=== PATIENT | female | born 1950 | race Caucasian/White ===

== ENCOUNTER 2021-06-13 11:00 | Outpatient (REF) | payer MEDICARE, SELFPAY ==
--- NOTE | ~2021-06-13 | MM_ITS ---
EXAMINATION: MM SCREENING DIGITAL BREAST TOMOSYNTHESIS, BILATERAL CLINICAL INFORMATION: Screening. Asymptomatic. The lifetime risk of breast cancer based on the Tyrer-Cuzick Model is 4%. COMPARISON: Mammography: 10/02/2019, 05/27/2018, 05/17/2017 TECHNIQUE: Digital breast tomosynthesis is performed in both the craniocaudal and mediolateral oblique views along with computer-aided detection (CAD). Synthesized 2D images are generated from the tomosynthesis. FINDINGS: There are scattered areas of fibroglandular density (ACR BI-RADS breast composition Category b). There are no significant masses, abnormal calcifications, or other abnormalities. Parenchymal pattern is similar to prior studies. No significant changes. MM/MM tomosynthesis screening BI IMPRESSION: No mammographic evidence of malignancy. ASSESSMENT: BI-RADS 1: Negative RECOMMENDATION: Routine annual mammography screening. This patient's information was entered into a reminder system with a target due date for their next mammogram.
== END 2021-06-13 11:01 | disposition home or self-care (01) ==
LOC: HO.MAMMO 11:00
PROVIDERS: PCP Internal Medicine; Visit Provider Internal Medicine
DX: Z12.31 Encounter for screening mammogram for malignant neoplasm of breast (principal)
CPT/HCPCS: 77063; 77067

== ENCOUNTER 2021-06-28 07:59 | Outpatient (REF) | payer MEDICARE, SELFPAY ==
--- NOTE | ~2021-06-28 | MM_ITS ---
EXAMINATION: BONE DENSITOMETRY CLINICAL INDICATION: Postmenopausal estrogen deficiency. COMPARISON: Previous BD dated 08/01/2017 and baseline BD dated 05/11/2011. TECHNIQUE: Using a [employer] DXA System (software version: 13.1) manufactured by [employer], dual-energy x-ray absorptiometry was performed of the lumbar spine and left hip. The images are of good technical quality. Summary results are attached. FINDINGS: AP SPINE L1-L4: Current: BMD 1.106 g/cm2, Z-score 1.0, T-score -0.6, normal, 4.0% decrease from previous, 7.7% decrease from baseline (<5% change is not significant). Prior: BMD 1.152 g/cm2. Baseline: BMD 1.198 g/cm2. LEFT FEMUR, NECK: Current: BMD 0.839 g/cm2, Z-score 0.2, T-score -1.4, osteopenia. Prior: BMD 0.870 g/cm2. Baseline: BMD 0.963 g/cm2. LEFT FEMUR, TOTAL: Current: BMD 0.786 g/cm2, Z-score -0.4, T-score -1.8, osteopenia, 8.6% decrease from previous, 16.3% decrease from baseline (<5% change is not significant). Prior: BMD 0.860 g/cm2. Baseline: BMD 0.939 g/cm2. IDENTIFIED RISK FACTORS: Menopause, height loss, history of fracture (adult), hysterectomy, bilateral oophorectomy. HISTORY OF FRACTURE: Elbow. MEDICATIONS: Vitamin D. MM/XR DEXA axial skeleton IMPRESSION: 1. DIAGNOSIS: Osteopenia based on the lowest T-score value of -1.8 in the total femur applying World Health Organization criteria. 2. 10-YEAR FRACTURE RISK PREDICTION, FRAX: Major osteoporotic fracture (clinical spine, forearm, hip or shoulder) 15.7%. Hip fracture 2.0%. 3. Treatment Recommendations: NOF guidelines recommend consideration for treatment in postmenopausal women and men age 50 and older presenting with the following: -A hip or vertebral (clinical or morphometric) fracture. -T-score less than or equal to -2.5 at the femoral neck or spine after appropriate evaluation to exclude secondary causes. -Low bone mass at the hip or spine and a 10-year fracture probability by FRAX of greater than or equal to 3% for hip fracture or greater than or equal to 20% for major osteoporotic fracture based on the [place] adapted WHO algorithm. 4. Other Recommendations: All treatment decisions require clinical judgment and consideration of individual patient factors, including patient preferences, comorbidities, previous drug use, risk factors not captured in the FRAX model (e.g. frailty, falls, vitamin D deficiency, increased bone turnover, interval significant decline in bone density) and possible under or overestimation of fracture risk by FRAX. Additional medical evaluation for secondary cause of low bone mineral density may be appropriate. FUTURE SCAN RECOMMENDATION: People with diagnosed cases of osteoporosis or at high risk for fracture should have regular bone mineral density tests. For patients eligible for Medicare, routine testing is allowed once every 2 years. The testing frequency can be increased to one year for patients who have rapidly progressing disease, those who are receiving or discontinuing medical therapy to restore bone mass, or have additional risk factors.
== END 2021-06-28 08:00 | disposition home or self-care (01) ==
LOC: HO.MAMMO 07:59
PROVIDERS: Visit Provider Internal Medicine
DX: Z13.820 Encounter for screening for osteoporosis (principal); M85.80 Other specified disorders of bone density and structure, unspecified site; Z78.0 Asymptomatic menopausal state; Z87.81 Personal history of (healed) traumatic fracture; Z79.899 Other long term (current) drug therapy; Z98.890 Other specified postprocedural states
CPT/HCPCS: 77080

== ENCOUNTER 2022-06-19 07:38 | Outpatient (REF) | payer MEDICARE, SELFPAY ==
--- NOTE | ~2022-06-19 | MM_ITS ---
EXAMINATION: MM SCREENING DIGITAL BREAST TOMOSYNTHESIS, BILATERAL CLINICAL INFORMATION: Screening. Asymptomatic. The lifetime risk of breast cancer based on the Tyrer-Cuzick Model is 3.4%. COMPARISON: Mammography: 06/13/2021 and studies dating back to 04/20/2010 TECHNIQUE: Digital breast tomosynthesis is performed in both the craniocaudal and mediolateral oblique views along with computer-aided detection (CAD). Synthesized 2D images are generated from the tomosynthesis. FINDINGS: There are scattered areas of fibroglandular density (ACR BI-RADS breast composition Category b). There is a stable parenchymal pattern of the left breast. Within the superior aspect of the right breast on mediolateral oblique projection approximately 8 cm from the nipple, there is a 4 x 3 mm circumscribed density which I cannot appreciate on craniocaudal view. By tomosynthesis, this should lie in the medial aspect of the breast. There is question of it containing fat but I cannot be sure of this. This likely represents a new intramammary lymph node however, spot compression view and 90 degree mediolateral view is recommended. MM/MM tomosynthesis screening BI IMPRESSION: New right breast density superiorly for further evaluation as described. ASSESSMENT: BI-RADS 0: Incomplete - Need Additional Imaging Evaluation RECOMMENDATION: 1. Additional views of the right breast 2. Targeted ultrasound if warranted after review of the additional views. 3. Radiology department staff will contact the patient for additional imaging.
== END 2022-06-19 07:39 | disposition home or self-care (01) ==
LOC: HO.MAMMO 07:38
PROVIDERS: PCP Internal Medicine; Visit Provider Internal Medicine
DX: Z12.31 Encounter for screening mammogram for malignant neoplasm of breast (principal)
CPT/HCPCS: 77063; 77067

== ENCOUNTER 2022-07-06 14:30 | Outpatient (REF) | payer MEDICARE, SELFPAY ==
--- NOTE | ~2022-07-06 | MM_ITS ---
EXAMINATION: MM DIAGNOSTIC DIGITAL BREAST TOMOSYNTHESIS, RIGHT CLINICAL INFORMATION: Recall from screening for small circumscribed nodule close to skin upper right breast. COMPARISON: Mammography: 02/17/2022, 02/11/2021, 10/02/2019 TECHNIQUE: Digital breast tomosynthesis is performed. 2D images are generated from the tomosynthesis. The following views are obtained: ML and MLO views with skin marker. FINDINGS: There are scattered areas of fibroglandular density (ACR BI-RADS breast composition Category b). There is a small mole which corresponds to the finding for recall, marked with dermal marker. Results are discussed with the patient at time of visit. Patient notes chronic dermal lesion in this area. MM/MM tomosynthesis added views R IMPRESSION: Small dermal lesion corresponding to finding for recall. ASSESSMENT: BI-RADS 2: Benign RECOMMENDATION: Routine annual mammography screening. This patient's information was entered into a reminder system with a target due date for their next mammogram.
== END 2022-07-06 14:31 | disposition home or self-care (01) ==
LOC: HO.MAMMO 14:30
PROVIDERS: PCP Internal Medicine; Visit Provider Internal Medicine
DX: R92.2 Inconclusive mammogram (principal)
CPT/HCPCS: 77061; 77065

== ENCOUNTER 2023-02-04 17:34 | Emergency (ER) | payer MEDICARE, SELFPAY ==
--- NOTE | 2023-02-04 17:37 | ED_ITS ---
HPI - General Adult General Chief complaint: Animal Bite <JAM Wasserman - Last Filed: 02/04/23 17:42> Stated complaint: dog bite on finger <JAM Wasserman - Last Filed: 02/04/23 17:42> Time Seen by Provider: 02/04/23 20:58 <JAM Wasserman - Last Filed: 02/04/23 17:42> Source: patient <Manjit Fajardo MD - Last Filed: 02/04/23 21:46> Mode of arrival: ambulatory <Manjit Fajardo MD - Last Filed: 02/04/23 21:46> Limitations: no limitations <Manjit Fajardo MD - Last Filed: 02/04/23 21:46> History of Present Illness HPI narrative: 72-year-old female presents with dog bite to the right middle finger. Was rooming dog. Vaccinations are up-to-date. Patient was playing with her dog the dog got excited neck but the finger. Pain is mild at nature. Worse with palpation. There is a significant amount of bleeding at the time. That has since stopped. Tetanus is not up-to-date. Dog does not have a history of biting. <Manjit Fajardo MD - Last Filed: 02/04/23 21:46> Related Data Home medications: Previous Rx's Medication Instructions Recorded amoxicillin 875 mg-potassium 1 tab PO BID #10 tabs 02/04/23 clavulanate 125 mg tablet <JAM Wasserman - Last Filed: 02/04/23 17:42> Allergies/adverse reactions: Allergies Allergy/AdvReac Type Severity Reaction Status Date / Time No Known Allergies Allergy Unverified 07/07/20 15:40 <JAM Wasserman - Last Filed: 02/04/23 17:42> [facility] Social History Social History: Social History Advance Directives: No Advance Directives Information Provided: No <JAM Wasserman - Last Filed: 02/04/23 17:42> Physical Exam ED Vital Signs: Vital Signs - 24 hr 02/04/23 17:38 02/04/23 20:35 Temperature 98.1 F Pulse Rate 87 Respiratory Rate 18 Blood Pressure 220/120 H 155/85 H Pulse Oximetry 100 Oxygen Delivery Method Room Air BMI result Body Mass Index 26.2 <JAM Wasserman - Last Filed: 02/04/23 17:42> Vital Signs - 24 hr 02/04/23 17:38 02/04/23 20:35 Temperature 98.1 F Pulse Rate 87 Respiratory Rate 18 Blood Pressure 220/120 H 155/85 H Pulse Oximetry 100 Oxygen Delivery Method Room Air BMI result Body Mass Index 26.2 <Manjit Fajardo MD - Last Filed: 02/04/23 21:46> GEN: Well developed, no acute distress, alert, oriented HEENT: Normocephalic, atraumatic, normal external ears, nose appears normal Eyes: Normal to appearance Neck: Supple, no lymphadenopathy Respiratory: Talks in complete sentences, no respiratory distress Extremities: No clubbing cyanosis or edema, neurovascularly intact on the right middle finger, able to flex and extend against resistance Neurologic: No focal neurologic deficits, cranial nerves 2-12 intact, gait normal Skin: No rash , flap laceration to the left full lower aspect of distal phalanx middle finger on the right <Manjit Fajardo MD - Last Filed: 02/04/23 21:46> Course Course Course Narrative: RME - 72yo patient presenting after a dog bite earlier today. Patient stated she was playing fetch with her Indonesian hernandez today when he caught her middle finger. Patient stated the dog is up to date on its shots. Patient is unsure of her last tetanus vaccine. BP in triage 220/120 Plan: Tdap, lidocaine <JAM Wasserman - Last Filed: 02/04/23 17:42> Reevaluation(s) Reevaluation #1: Laceration is repaired wound care was discussed with the patient. She received a dose of Augmentin in a tetanus vaccine today. <Manjit Fajardo MD - Last Filed: 02/04/23 21:46> Time: 21:43 <Manjit Fajardo MD - Last Filed: 02/04/23 21:46> Medications Administered Discontinued Medications Generic Name Dose Route Start Last Admin Trade Name Freq PRN Reason Stop Dose Admin Diphtheria/Tetanus/Acell Pertussis 0.5 ml 02/04/23 17:39 02/04/23 20:35 Diphth,Pertus(Acell),Tet Adult 0.5 Ml Syringe IM 02/04/23 17:40 0.5 ml .ONCE ONE Administration <JAM Wasserman - Last Filed: 02/04/23 17:42> Medications Administered Discontinued Medications Generic Name Dose Route Start Last Admin Trade Name Claudette PRN Reason Stop Dose Admin Diphtheria/Tetanus/Acell Pertussis 0.5 ml 02/04/23 17:39 02/04/23 20:35 Diphth,Pertus(Acell),Tet Adult 0.5 Ml Syringe IM 02/04/23 17:40 0.5 ml .ONCE ONE Administration <Manjit Fajardo MD - Last Filed: 02/04/23 21:46> Procedures Laceration Laceration 1: Site: hand <Manjit Fajardo MD - Last Filed: 02/04/23 21:46> Side (If applicable): right <Manjit Fajardo MD - Last Filed: 02/04/23 21:46> Size (cm): 3 <Manjit Fajardo MD - Last Filed: 02/04/23 21:46> Description: flap <Manjit Fajardo MD - Last Filed: 02/04/23 21:46> Depth: simple, single layer <Manjit Fajardo MD - Last Filed: 02/04/23 21:46> Local Anesthetic: lidocaine 1% <Manjit Fajardo MD - Last Filed: 02/04/23 21:46> Amount of anesthesia used (mL): 4 <Manjit Fajardo MD - Last Filed: 02/04/23 21:46> Pre-repair: wound explored, irrigated extensively and deep structures intact <Manjit Fajardo MD - Last Filed: 02/04/23 21:46> Skin layer closed with: vicryl <Manjit Fajardo MD - Last Filed: 02/04/23 21:46> Size (cm): 5-0 <Manjit Fajardo MD - Last Filed: 02/04/23 21:46> Number of sutures: 5 <Manjit Fajardo MD - Last Filed: 02/04/23 21:46> Technique: simple, interrupted <Manjit Fajardo MD - Last Filed: 02/04/23 21:46> Medical Decision Making Medical Decision Making MDM Narrative: 72-year-old female presents with dog bite to the right middle finger. Laceration was repaired as described above. Wound care was discussed with the patient. There is no evidence of tendon damage. Patient was able to flex and extend against resistance. Patient was neurovascularly intact. Patient was counseled regarding watching for signs or symptoms of infection which include but are not limited to redness, swelling, pain purulent drainage. Patient has received tetanus vaccination and Augmentin. She will go on Augmentin prophylactically. <Manjit Fajardo MD - Last Filed: 02/04/23 21:46> Differential Diagnosis Differential Diagnoses: The differential diagnosis associated with the presentation includes (Laceration, skin tear, abrasion) <Manjit Fajardo MD - Last Filed: 02/04/23 21:46> Prescription Management I considered prescription management with: Pain Medication and Antibiotic <Manjit Fajardo MD - Last Filed: 02/04/23 21:46> Discharge Plan Discharge Clinical Impression: Dog bite, Finger laceration <JAM Wasserman - Last Filed: 02/04/23 17:42> Patient Disposition: Home, Self-Care <JAM Wasserman - Last Filed: 02/04/23 17:42> Instructions: Animal Bite (ED), Finger Laceration (ED) <JAM Wasserman - Last Filed: 02/04/23 17:42> Prescriptions: New amoxicillin-pot clavulanate 875-125 mg tablet 1 tab PO BID Qty: 10 0RF <JAM Wasserman - Last Filed: 02/04/23 17:42> Referrals: Fernando Morel MD [Primary Care Provider] - 1 week (Wound check possible suture removal, sutures are absorbable) <JAM Wasserman - Last Filed: 02/04/23 17:42>
[2023-02-04 17:38] VITALS: BP 220/120; PULSE 87; RESP 18; TEMP 36.7; O2SAT 100; BMI 26.2
--- NOTE | 2023-02-04 19:53 | PC.NURSE ---
pt right middle finger placed in iodine, and NS, bleeding controlled at this time, pt has jagged laceration to middle finger.
[2023-02-04 20:35] VITALS: BP 155/85
[2023-02-04] MEDS: Diphth,Pertus(ACell),Tet Adult 0.5 ML SYRINGE IM (20:35)
--- NOTE | 2023-02-04 20:37 | PC.NURSE ---
Tdap Updated, in right deltoid
[2023-02-04] MEDS: Amoxicillin/Potassium Clav 875 MG TABLET PO (21:40)
[2023-02-04] MEDS: Lidocaine HCl 1 % 20 ML VIAL INFILTRATI (21:42)
--- NOTE | 2023-02-04 21:53 | PC.NURSE ---
suture site cleansed with NS patted dry, followed by nonstick dressing, kerlix and tape, pt alert orietned, NAD on discharge
== END 2023-02-04 21:53 | disposition home or self-care (01) ==
PROVIDERS: Emergency Provider Emergency Medicine; PCP Internal Medicine
DX: S61.252A Open bite of right middle finger without damage to nail, initial encounter (principal); W54.0XXA Bitten by dog, initial encounter; Y93.9 Activity, unspecified; Y92.017 Garden or yard in single-family (private) house as the place of occurrence of the external cause; Y99.9 Unspecified external cause status
CPT/HCPCS: 90471; 90715; 99283; 99284

== ENCOUNTER 2023-06-25 07:26 | Outpatient (REF) | payer MEDICARE, SELFPAY ==
--- NOTE | ~2023-06-25 | MM_ITS ---
EXAMINATION: MM SCREENING DIGITAL BREAST TOMOSYNTHESIS, BILATERAL CLINICAL INFORMATION: Screening. Asymptomatic. COMPARISON: Mammography: 07/06/2022, 06/19/2022, 06/13/2021, 10/02/2019, and dating back to 2017. TECHNIQUE: Digital breast tomosynthesis is performed in both the craniocaudal and mediolateral oblique views along with computer-aided detection (CAD). Synthesized 2D images are generated from the tomosynthesis. FINDINGS: There are scattered areas of fibroglandular density (ACR BI-RADS breast composition Category b). There are no suspicious masses, suspicious grouped calcifications, or areas of architectural distortion. The parenchymal pattern is stable from prior exams. There are dermal lesions in the upper and inferomedial right breast. These are benign. Benign lymph nodes in the far upper outer bilateral breasts. MM/MM tomosynthesis screening BI IMPRESSION: No mammographic evidence of malignancy. Stable benign findings. ASSESSMENT: BI-RADS BI-RADS 2 - Benign Findings RECOMMENDATION: Routine annual mammography screening. 1 year F/U This examination should not preclude the clinical evaluation of a suspicious palpable abnormality. This patient's information was entered into a reminder system with a target due date for their next mammogram.
== END 2023-06-25 07:27 | disposition home or self-care (01) ==
LOC: HO.MAMMO 07:26
PROVIDERS: PCP Internal Medicine; Visit Provider Internal Medicine
DX: Z12.31 Encounter for screening mammogram for malignant neoplasm of breast (principal)
CPT/HCPCS: 77063; 77067

== ENCOUNTER → 2023-06-25 07:30 | Outpatient (BNV) | payer MEDICARE, SELFPAY | PROVIDERS: PCP Internal Medicine; Visit Provider Radiology Diagnostic Radiology | DX: Z12.31 Encounter for screening mammogram for malignant neoplasm of breast (principal) | CPT/HCPCS: 77063; 77067 ==

== ENCOUNTER 2024-04-04 15:47 | Emergency (ER) | payer MEDICARE, SELFPAY ==
[2024-04-04 15:55] VITALS: BP 154/80; PULSE 67; RESP 16; TEMP 36; O2SAT 98; BMI 25.0
--- NOTE | 2024-04-04 15:58 | ED.ANIMALBIT ---
HPI - Animal Bite General Chief Complaint: Animal Bite Stated Complaint: rt hand laceration Time Seen by Provider: 04/04/24 15:57 Source: patient Mode of arrival: ambulatory Limitations: no limitations History of Present Illness ED Provider: Natasha Ann PA-C HPI narrative: 73 yo gwen presents to the ER for evaluation of a dog bite to her right hand. She was playing with her dog when he accidentally bite her hand. He punctured skin at the base of the 1st finger and there was a superficial on the palm and thumb with minimal bleeding. Patient applied pressure to the puncture would with cessation of bleeding. She is UTD on her Tdap and her dog is vaccinated as well. She is able to fully range all of her digits and make a fist. No significant pain, she reports some mild discomfort, 3/10. complaint: animal bite Onset (ago): minute(s) Animal: dog Description of animal: household pet Mechanism: bite Location - Extremities: right: hand Pain description: dull Severity scale (1-10): 3 Context: playing with animal Associated symptoms: none Treatments prior to arrival: wound dressing(s) and irrigation Related Data Patient tetanus UTD: Yes Previous Rx's ?Medication ?Instructions ?Recorded amoxicillin 875 mg-potassium 1 tab PO BID #10 tabs 02/04/23 clavulanate 125 mg tablet amoxicillin 875 mg-potassium 1 tab PO BID #14 tabs 04/04/24 clavulanate 125 mg tablet Allergies Allergy/AdvReac Type Severity Reaction Status Date / Time No Known Allergies Allergy Verified 04/04/24 15:57 Review of Systems Review of Systems: Yes all other systems are reviewed and are negative [facility] Social History Social History Advance Directives: No Advance Directives Information Provided: No Physical Exam ED Vital Signs: Vital Signs - 24 hr 04/04/24 15:55 04/04/24 16:24 Temperature 96.8 F 96.8 F Pulse Rate 67 67 Respiratory Rate 16 16 Blood Pressure 154/80 H 154/80 H Pulse Oximetry 98 98 Oxygen Delivery Method Room Air Room Air BMI result Body Mass Index 25.0 Appearance: Alert. Oriented X3. No acute distress. HEENT: normal inspection CVS: Normal heart rate and rhythm. Pulses normal. Respiratory: No respiratory distress. Skin: Skin warm and dry. Normal skin color. Normal skin turgor. No rashes. Extremities: Right hand with a X shaped superficial laceration, approximately 1 cm at the base of the 1st digit on the dorsal aspect of the hand, no active bleeding. No visible tendons. There is also a superficial flap on the palmar surface of the thumb and a superficial scratch on the dorsal aspect of the thumb, approximately 0.5 cm. Patient has full range of motion of all digits. Equal clinical reimbursement specialist strength bilaterally. Neurovascularly intact with no sensory loss, cap refill less than 3 seconds in all digits. Neuro: Oriented X 3. No motor deficit. No sensory deficit. Medical Decision Making Medical Decision Making MDM Narrative: 73-year-old female presents to the ER for evaluation of a dog bite on her right hand, sustained her dog just prior to arrival. Dog and patient are up-to-date on their vaccinations. Wounds are small, superficial and do not require suture repair today. Low suspicion for open fracture with no point tenderness on examination. Will hold off on x-ray today. Wounds were cleansed and copiously irrigated, soaked in combination of saline, hydrogen peroxide and Betadine. They were irrigated and cleaned with soap and water. Steri-Strips were applied to the irregular, cross sheet laceration to ensure closure and adequate healing. Dry sterile dressing was applied. Wound care discussed with the patient. Stable for discharge home with oral Augmentin. Patient agrees with plan all questions were answered. Return precautions and signs of infection were discussed. Differential Diagnosis Differential Diagnoses: The differential diagnosis associated with the presentation includes Superficial laceration, deep laceration, tendon injury, open fracture Independent Historian Clinical information obtained from an independent historian. History obtained from or confirmed by: Spouse Tests considered The following testing was considered but not selected: X-ray of the hand was considered however low suspicion for fracture Prescription Management I considered prescription management with: Pain Medication and Antibiotic Procedures Laceration Laceration 1: Site: hand Side (If applicable): right Size (cm): 1 Description: irregular Depth: simple, single layer Pre-repair: irrigated extensively Skin layer closed with: other (steri strips) Critical Care Time Critical Care Time Critical Care Time: No Discharge Plan Discharge Clinical Impression: Dog bite Patient Disposition: Home, Self-Care Instructions: Animal Bite (ED) Additional Instructions: Do not get wet for the next 24-48 hours, after that you can gently wash with soap and water and pat dry. The Steri-Strips will come off on their own, usually within 1 week. Take the prescribed antibiotics as directed, complete the entire course and do not miss any doses Prescriptions: New amoxicillin-pot clavulanate 875-125 mg tablet 1 tab PO BID Qty: 14 0RF No Action amoxicillin-pot clavulanate 875-125 mg tablet 1 tab PO BID Qty: 10 0RF Referrals: Fernando Morle MD [Primary Care Provider] - Interventions: ED Discharge Assessment Last Done: 04/04/24 16:24 Discharge Date/Time: 04/04/24 16:24 Print Language: Bangladeshi
[2024-04-04 16:24] VITALS: BP 154/80; PULSE 67; RESP 16; TEMP 36; O2SAT 98
== END 2024-04-04 16:24 | disposition home or self-care (01) ==
PROVIDERS: Emergency Provider Emergency Medicine; PCP Internal Medicine
DX: S61.411A Laceration without foreign body of right hand, initial encounter (principal); W54.0XXA Bitten by dog, initial encounter; Y93.89 Activity, other specified; Y92.9 Unspecified place or not applicable; Y99.9 Unspecified external cause status
CPT/HCPCS: 99282; 99283

== ENCOUNTER 2024-06-30 07:24 | Outpatient (REF) | payer MEDICARE, SELFPAY ==
--- NOTE | ~2024-06-30 | MM_ITS ---
EXAMINATION: MM SCREENING DIGITAL BREAST TOMOSYNTHESIS, BILATERAL CLINICAL INFORMATION: Screening. Asymptomatic. COMPARISON: Mammography: Comparison is made with available priors TECHNIQUE: Digital breast mammography with tomosynthesis is performed in both the craniocaudal and mediolateral oblique views along with computer-aided detection (CAD). FINDINGS: There are scattered areas of fibroglandular density (ACR BI-RADS breast composition Category b). There are no significant masses, abnormal calcifications, or other abnormalities. MM/MM tomosynthesis screening BI IMPRESSION: No mammographic evidence of malignancy. ASSESSMENT: BI-RADS BI-RADS 1 - Negative RECOMMENDATION: Routine annual mammography screening. 1 year F/U This examination should not preclude the clinical evaluation of a suspicious palpable abnormality. This patient's information was entered into a reminder system with a target due date for their next mammogram. Electronically signed by: Renetta Bellamy DO 07/14/2024 09:21 AM EDKwame
== END 2024-06-30 07:25 | disposition home or self-care (01) ==
LOC: HO.MAMMO 07:24
PROVIDERS: PCP Internal Medicine; Visit Provider Internal Medicine
DX: Z12.31 Encounter for screening mammogram for malignant neoplasm of breast (principal)
CPT/HCPCS: 77063; 77067

== ENCOUNTER → 2024-06-30 07:30 | Outpatient (BNV) | payer MEDICARE, SELFPAY | PROVIDERS: PCP Internal Medicine; Visit Provider Internal Medicine | DX: Z12.31 Encounter for screening mammogram for malignant neoplasm of breast (principal) | CPT/HCPCS: 77063; 77067 ==

== ENCOUNTER → 2025-07-13 07:30 | Outpatient (BNV) | payer MEDICARE, SELFPAY | PROVIDERS: PCP Family Medicine; Visit Provider Radiology Body Imaging | DX: Z12.31 Encounter for screening mammogram for malignant neoplasm of breast (principal) | CPT/HCPCS: 77063; 77067 ==

== ENCOUNTER 2025-07-13 07:34 | Outpatient (REF) | payer MEDICARE, SELFPAY ==
--- NOTE | ~2025-07-13 | MM_ITS ---
EXAMINATION: MM SCREENING DIGITAL BREAST TOMOSYNTHESIS, BILATERAL CLINICAL INFORMATION: Screening. Asymptomatic. COMPARISON: Comparison made to multiple prior, most recent June 30, 2024, and most remote of June 13, 2021. TECHNIQUE: Digital breast tomosynthesis is performed in mediolateral oblique and craniocaudal views along with computer-aided detection (CAD). Synthesized 2D images are generated from the tomosynthesis. FINDINGS: BREAST COMPOSITION: There are scattered areas of fibroglandular density. BILATERAL BREASTS: No significant masses, suspicious calcifications or other abnormalities are seen in either breast. MM/MM tomosynthesis screening BI IMPRESSION: BILATERAL BREASTS: Negative, no mammographic evidence of malignancy. Normal interval follow-up is recommended in 12 months. ASSESSMENT: BI-RADS: Category 1: Negative RECOMMENDATION: Routine annual mammography screening. FOLLOW-UP: 1 year F/U This examination should not preclude the clinical evaluation of a suspicious palpable abnormality. This patient's information was entered into a reminder system with a target due date for their next mammogram. Electronically signed by: Jayce Ibrahim MD 07/13/2025 08:04 PM EDT
--- OUTSIDE RECORDS SUMMARY | 2025-07-13 07:36 | XMS_ITS | Encounter Summary ---
Author Organization [facility] Address [address] [employer] [address] [address] Phone Care Team Providers Care Batch Mixer Name Role Phone Fernando Morel MD Primary Care Provider [phone] Fernando Morel MD Unavailable [phone] Khoa Villar DO Primary Care Provider [phone] Encounter Details Date Type Department Care Team (Late st Contact Info) Description 07/11/2021 Procedure Pass [facility], [address] [address] Social History Tobacco Use Types Packs/Day Years Used Date Smoking Tobacco: Former Cigarettes 0.1 7 1 974 - 1981 Smokeless Tobacco: Never Comments:quit 40 years ago Alcohol Use Standard Drinks/Week Comments Yes 0 (1 standard drink = 0.6 oz pur e alcohol) 1-2 drinks, 2-4 x month Comments No Sex and Gender Information Value Date Recorded Sex Assigned at Female 06/21/2021 3:20 PM EDT Legal Sex Female 7:20 PM EST Gender Identity Female 06/21/2021 3:20 PM EDT Sexual Orientation Straight 06/21/2021 3: 20 PM EDT documented as of this encounter Plan of Treatment Upcoming Encounters Date Type Department Care Team (Late st Contact Info) Description 08/24/2025 10:30 AM EST Office Visit [facility] [address] [place] [id number] Khoa Villar DO [address] [place] [address] documented as of this encounter Visit Diagnoses Not on filedocumented in this encounter Additional Health Concerns Assessment Noted Time PHQ-2 Depression Total Score: 0 06/25/20 22 9:17 AM EDT documented as of this encounter Care Teams Batch Mixer Relationship Specialty Start Date End Date Fernando Morel MD [address] [place] [address] PCP - General 04/20/14 09/21/24 Khoa Villar DO [address] [place] [address] PCP - General Family Medicine 09/22/24 Fernando Morel MD [address] [place] [address] Insurance Assigned Provider 02/21/19 03/31/22 documented as of this encounter Additional Source Comments The information contained in this document represents components of the legal health record. It is not the complete legal health record.[facility]
--- OUTSIDE RECORDS SUMMARY | 2025-07-13 07:37 | XMS_ITS | Encounter Summary ---
Author Organization [facility] Address [address] [address] Phone Care Team Providers Care Paper Cup Handle Machine Operator Name Role Phone Fernando Morel MD Primary Care Provider [phone] Khoa Villar DO Primary Care Provider [phone] Encounter Details Date Type Department Care Team (Latest Contact Info) Description 06/11/2024 Transcribe Orders Virtual Department [address] [place] [phone] Fernando Morel MD [address] [place] [address] [email or web address] Breast screening (Primary Dx) Social History Tobacco Use Types Packs/Day Years Used Date Smoking Tobacco: Former Cigarettes 0.1 7 1 974 - 1981 Smokeless Tobacco: Never Comments:quit 40 years ago Alcohol Use Standard Drinks/Week Comments Not Currently 0 (1 standard drink = 0.6 oz pur e alcohol) quit drinking 05/04/2023 Education Answer Date Recorded Are you interested in more education? Not on pebbles e 02/14/2023 Are you concerned about learning? Not on file 02/14/2023 No 02/14/2023 No 02/14/2023 Digital Access Answer Date Recorded No 03/18/2023 No 03/18/2023 Reliable internet access at home? Not on file 03/18/2023 Device with a working camera? Not on file Comments No Sex and Gender Information Value [...] Description 08/24/2025 10:30 AM EST Office Visit [facility] [address] [place] [address] Khoa Villar DO [address] [place] [address] [email or web address] documented as of this encounter Results * Mammogram Screening (Bilateral) (06/30/2024 11:38 AM EDT) Anatomical Region Laterality Modality Breast Left, Breast Right, Breast Bilateral Bila teral Breast Screening us Fernando Morel MD IMG MG EXAMS Final Result documented in this encounter Visit Diagnoses Diagnosis Breast screening- Primary Breast screening, unspecified documented in this encounter Additional Health Concerns Assessment Noted Time PHQ-2 Depression Total Score: 0 06/24/20 23 10:43 AM EDT documented as of this encounter Care Teams Paper Cup Handle Machine Operator Relationship Specialty Start Date End Date Fernando Morel MD [address] [place] [address] PCP - General 04/20/14 09/21/24 Khoa Villar DO [address] [place] [address] PCP - General Family Medicine 09/22/24 documented as of this encounter Additional Source Comments The information contained in this document represents components of the legal health record. It is not the complete legal health record.[facility]
--- OUTSIDE RECORDS SUMMARY | 2025-07-13 07:37 | XMS_ITS | Encounter Summary ---
Author Organization [facility] Address [address] [address] Phone Care Team Providers Care Medical Office Supervisor Name Role Phone Fernando Morel MD Primary Care Provider [phone] Khoa Villar DO Primary Care Provider [phone] Encounter Details Date Type Department Care Team (Late st Contact Info) Description 11/10/2023 Procedure Pass [facility], Ct Scan - [address] [address] Social History Tobacco Use Types Packs/Day Years [...] PM EDT documented as of this encounter Functional Status * Calculated C-SSRS Risk Score (Lifetime/Recent) Answer Date of Assessment Author No Risk Indicated 11/10/2023 5:04 PM Mai Michaels RN * [place] Suicide Severity Rating Scale (Screener/Recent Self-Report) Question Answer Date of Assessment Author 1. Wish to be (Past 1 Month) No 024 5:04 PM Mai Michaels RN 2. Non-Specific Active Suici lexy Thoughts (Past 1 Month) No 11/10/2023 5:04 PM Mai Michaels RN 6. Suicidal Behavior (Lifetime) No 5:04 PM Mai Michaels RN documented as of this encounter Plan of Treatment Upcoming Encounters Date Type Department Care Team (Late st Contact Info) Description 08/24/2025 10:30 AM EST Office Visit [facility] [address] [place] [address] Khoa Villar DO [address] [place] [address] documented as of this encounter Visit Diagnoses Not on filedocumented in this encounter Additional Health Concerns Assessment Noted Time PHQ-2 Depression Total Score: 0 06/24/20 23 10:43 AM EDT documented as of this encounter Care Teams Medical Office Supervisor Relationship Specialty Start Date End Date Fernando Morel MD [address] [place] [phone] PCP - General 04/20/14 09/21/24 Khoa Villar DO [address] [place] [address] PCP - General Family Medicine 09/22/24 documented as of this encounter Additional Source Comments The information contained in this document represents components of the legal health record. It is not the complete legal health record.[facility]
--- OUTSIDE RECORDS SUMMARY | 2025-07-13 07:37 | XMS_ITS | Encounter Summary ---
Author Organization [facility] Address [address] [address] Phone Care Team Providers Care Surveyor'S Assistant Name Role Phone Fernando Morel MD Primary Care Provider [phone] Fernando Morel MD Unavailable [phone] Khoa Villar DO Primary Care Provider [phone] Encounter Details Date Type Department Care Team (Late st Contact Info) Description 06/22/2021 Procedure Pass [facility], [address] [place] [address] Social History Tobacco Use Types Packs/Day Years Used Date Smoking Tobacco: Former Cigarettes 0.1 7 1 974 - 1981 Smokeless Tobacco: Never Comments:quit 40 years ago Alcohol Use Standard Drinks/Week Comments Yes 4 (1 standard drink = 0.6 oz pur e alcohol) hard seltzer Comments No Sex and Gender Information Value [...] Description 08/24/2025 10:30 AM EST Office Visit [facility] [address] [place] [address] Khoa Villar DO [address] [place] [address] documented as of this encounter Visit Diagnoses Not on filedocumented in this encounter Additional Health Concerns Assessment Noted Time PHQ-2 Depression Total Score: 2 06/19/20 21 8:29 AM EDT documented as of this encounter Care Teams Surveyor'S Assistant Relationship Specialty Start Date End Date Fernando Morel MD [address] [place] [address] PCP - General 04/20/14 09/21/24 Khoa Villar DO [address] [place] [address] PCP - General Family Medicine 09/22/24 Fernando Morel MD [address] [place] [address] Insurance Assigned Provider 02/21/19 03/31/22 documented as of this encounter Additional Source Comments The information contained in this document represents components of the legal health record. It is not the complete legal health record.[facility]
--- OUTSIDE RECORDS SUMMARY | 2025-07-13 07:37 | XMS_ITS | Encounter Summary ---
Author Organization [facility] Address [address] [employer] [address] [address] Phone Care Team Providers Care Air Support Control Officer Name Role Phone Fernando Morel MD Primary Care Provider [phone] Khoa Villar DO Primary Care Provider [phone] Encounter Details Date Type Department Care Team (Late st Contact Info) Description 07/16/2022 Procedure Pass [facility], [address] [place] [address] Social History Tobacco Use Types Packs/Day Years Used Date Smoking Tobacco: Former Cigarettes 0.1 7 1 974 - 1981 Smokeless Tobacco: Never Comments:quit 40 years ago Alcohol Use Standard Drinks/Week Comments Yes 2 (1 standard drink = 0.6 oz pure alcohol) 2 glasses of rum with soda on a saturday night Comments No Sex and Gender Information Value [...] Description 08/24/2025 10:30 AM EST Office Visit [address] [address] Khoa Villar DO [address] [place] [address] documented as of this encounter Visit Diagnoses Not on filedocumented in this encounter Additional Health Concerns Assessment Noted Time PHQ-2 Depression Total Score: 0 07/06/20 8:19 AM EDT documented as of this encounter Care Teams Air Support Control Officer Relationship Specialty Start Date End Date Fernando Morel MD [address] [place] [address] PCP - General 04/20/14 09/21/24 Khoa Villar DO [address] [place] [address] PCP - General Family Medicine 09/22/24 documented as of this encounter Additional Source Comments The information contained in this document represents components of the legal health record. It is not the complete legal health record.[facility]
--- OUTSIDE RECORDS SUMMARY | 2025-07-13 07:37 | XMS_ITS | Clinical Summary ---
Author Organization [facility] Address [address] [employer] [address] [address] Phone Care Team Providers Care Horticultural Specialty Grower Field Name Role Phone JianFilibertoalondra Roberts DO Primary Care Provider [phone] Allergies No known active allergies Medications omeprazole (PRILOSEC) 20 MG capsuleIndicatio ns:Gastroesophag eal reflux disease without esophagitis Take 1 capsule (20 mg total) by mouth daily. 90 capsule 3 4 Active VITAMIN D3 50 mcg (2,000 unit) capsuleIndicatio ns:Vitamin D deficiency TAKE ONE CAPSULE BY MOUTH EVERY DAY 90 capsule 3 4 Active citalopram (CELEXA) 20 MG tabletIndication s:Anxiety Take 1 tablet (20 mg total) by mouth every morning. 90 tablet 3 5 Active citalopram (CELEXA) 20 MG tabletIndication s:Anxiety take one tablet by mouth every day 90 tablet 3 4 06/15/20 25 Discontinu ed(Reorder ) Active Problems Problem Noted Date Diagnosed Date Elevated blood pressure read ing without diagnosis of hypertension 07/10/2023 Assessment & Plan (07/10/2023 1:31 PM EDT): Her b/p is elevated today. I review for her home B/P and provide details in the AVS for accurate resting b/p process. I have asked her to send in the readings via the portal- We discuss heart healthy diet/ no added salt- exercise and weight loss - is s/s chg or worsen she should call us fang- b/p f/u with pcp in 6-8 weeks sooner if symptomatic Anxiety 06/09/2018 Assessment & Plan (08/21/2024 2:36 PM EDT): Stable. Pt manages well with citalopram. No longer working with a therapist. Colon polyp 06/09/2018 Assessment & Plan (08/21/2024 2:34 PM EDT): Follows with GI. Last scope 12/12 with 5 year f/u advised. GERD (gastroesophageal reflux disease) 8 Assessment & Plan (08/21/2024 2:33 PM EDT): Pt advised to avoid late night meals, spicy foods, foods high in fat, caffeine, tobacco and alcohol. Pt advised to elevate the head of the bed and reduce weight. Pt requires omeprazole or becomes symptomatic. Follows with GI and has periodic EGD. 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 Following at [facility] with Dr Flanagan. She is considered clinically and radiographically stable with an intact neurologic examination with no evidence of disease progression. Plan is to continue with surveillance imaging in 3 years to monitor for progression of this lesion. Cervical disc disorder 05/22/2012 Overview (12/10/2014): Cervical disc disorder Immunizations Immunization Administration Dates Next Due COVID-19 (Pre-08/12) Moderna Vaccine, mRNA, PF 0 01/19/2021,12/22/2020 COVID-19 Moderna Spikevax Vaccine 12+ 08/21/2024 INFLUENZA, SPLIT VIRUS, TRIVALENT W/ PRESERVATIV E IM 08/26/2013 Influenza High-Dose Quadrivalent Preservative Fr ee IM 07/25/2023,07/27/2022 Influenza High-Dose Trivalent Preservative Free IM 07/21/2018,11/23/2017 Influenza Quadrivalent Adjuvanted Preservative F ree IM 08/16/2021,08/03/2020 Influenza, Unspecified Formulation 08/20/2024, MMR 07/21/2024,05/29/2024 Pneumococcal conjugate PCV13 11/23/2017 Pneumococcal polysaccharide PPSV23 12/15/2018 Td (adult) 5 Lf Tetanus Toxoid, PF, Adsorbed 10/2005 Tdap 02/04/2023,04/16/2013 Typhoid, ViCPs 04/24/2006 Yellow Fever 04/24/2006 Zoster recombinant 04/09/2019,12/15/2018 Family History Medical History Relation Comments Kidney cancer Brother 1 COPD Brother 2 COPD Father Coronary artery disease Mother Heart disease Mother Hypertension Mother Relation Status Comments Brother 1 (Age 65) renal cncer de veloped in 50 s and 68 Brother 2 (Age 70) copd Father (Age 60) copd Mother (Age 87) cabg in 60s Sister (Age 57) liver problems pain med abuse Son 1 Alive crohns disese an kylosing spondylitis and ra Son 2 Alive healthy Social History Tobacco Use Types Packs/Day Years Used Date Smoking Tobacco: Former Cigarettes 0.1 7 1 974 - 1980 Smokeless Tobacco: Never Tobacco Cessation:Counseling Given: Not Answered Comments:quit 40 years ago Alcohol Use Standard Drinks/Week Comments Yes 2 (1 standard drink = 0.6 oz pure alcohol) 2 glasses of rum with soda on a saturday night Child or Family Care Answer Date Record ed Do you have problems with on e of the following making it difficult for you to work, study, or receive health care? No 08/15/2024 Education Answer Date Recorded Are you interested in more education? Not on pebbles e 02/14/2023 Are you concerned about learning? Not on file 02/14/2023 No 02/14/2023 No 02/14/2023 Food Answer Date Recorded Within the past 6 months we worried whether our food would run out before we got money to buy more. Never True 08/15/2024 Within the past 6 months the food we bought just didn't last and we didn't have enough money to get more. Never True Residential Stability Answer Date Recor ded What is your housing situation today? I have kassandra sing 08/15/2024 How many times have you move d in the past 12 months? Zero (I did not move) 08/15/2024 Paying for Meds Answer Date Recorded Do you have trouble paying for medicines? No 08/15/2024 Paying Utility Bills Answer Date Record ed Do you have trouble paying your heating or elect ricity bill? No 08/15/2024 Transportation Answer Date Recorded Has the lack of transportati on kept you from medical appointments or from getting medications? No 08/15/2024 Digital Access Answer Date Recorded No 08/15/2024 Yes 08/15/2024 Do you have reliable internet access at home? Ye s 08/15/2024 Do you have a device (e.g., phone, tablet, computer) with a working camera? Yes 08/15/2024 Intimate Partner Violence Answer Date R ecorded Are you denied basic needs s uch as food, clothing, or medical care? Deferred 07/06/2024 In the past 12 months have y ou been in a relationship with a person who hurts, threatens, or tries to control you? No 07/06/2024 Are you denied basic needs s uch as food, clothing, or medical care? Deferred 07/06/2024 In the past 12 months have y ou been in a relationship with a person who hurts, threatens, or tries to control you? No 07/06/2024 Comments No Sex and Gender Information Value Date Recorded Sex Assigned at Female 06/21/2021 3:20 PM EDT Legal Sex Female 7:20 PM EST Gender Identity Female 06/21/2021 3:20 PM EDT Sexual Orientation Straight 06/21/2021 3: 20 PM EDT Occupation Industry Job Start Date Job End Date Retired- manager of allied health services Not on file Not on file Not o n file Last Filed Vital Signs Vital Sign Reading Time Taken Comments Blood Pressure 120/64 09/22/2024 3:21 PM EST Pulse 83 09/22/2024 3:21 PM EST Temperature 35.9 C (96.6 F) 09/22/2024 3:21 PM EST Respiratory Rate 20 09/22/2024 3:21 PM EST Oxygen Saturation 97% 09/22/2024 3:21 PM EST Inhaled Oxygen Concentration - - Weight 62.6 kg (138 lb) 09/22/2024 3:21 PM EST Height 161.3 cm (5' 3.5 ) 08/21/2024 2:09 PM EDT Body Mass Index 24.06 08/21/2024 2:09 PM EDT Plan of Treatment Upcoming Encounters Date Type Department Care Team (Late st Contact Info) Description 08/24/2025 10:30 AM EST Office Visit [address] [address] Khoa Villar, DO [address] [place] [phone] [email or web address] Health Maintenance Due Date Last Done Comments COLOGUARD 1997 FIT TEST 1997 FOBT 1997 SIGMOIDOSCOPY 1997 VIRTUAL COLONOSCOPY 1997 RSV VACCINE (1 - Risk 60-74 years 1-dose series) 2012 COLONOSCOPY 12/11/2024 12/11/2021, 11/22, 10/17/2015 COLORECTAL CANCER SCREENING 12/11/2024 INFLUENZA VACCINE (#1) 2025 , 07/25/2023, 07/27/2022, Additional history exists COVID-19 VACCINE ( season) 2025 08/21/2024, 07/27/2022, 08/16/2021, Additional history exists DEPRESSION SCREENING 08/21/2025 08/21/2024 MAMMOGRAM 06/30/2026 06/30/2024, 0 02/2023, 07/06/2022, Additional history exists LIPID PANEL 07/25/2028 07/25/2023, 0 05/2022, 06/20/2021, Additional history exists Adult Td,Tdap Booster 02/04/2033 02/04/2023 , 04/16/2013, 10/21/2005 PNEUMOCOCCAL VACCINES (50+ years) Completed 12/15/2018, 11/23/2017 ZOSTER VACCINES Completed 04/09/2019, 12/15/2018 HEPATITIS C SCREENING Completed 06/14/2020, 020 OSTEOPOROSIS SCREENING INITIAL (ONE-TIME) Completed 07/06/2024, 06/28/2021, 08/01/2017 SMOKING STATUS SCREENING (Once After 26 Yrs) Completed 09/22/2024 HEPATITIS A VACCINES Aged Out No long er eligible based on patient's age to complete this topic HIB VACCINES Aged Out No longer eligi ble based on patient's age to complete this topic MENINGOCOCCAL VACCINES (ACWY) Aged Out No longer eligible based on patient's age to complete this topic MENINGOCOCCAL VACCINES (B) Aged Out N o longer eligible based on patient's age to complete this topic Medical Devices Not on file Procedures Procedure Name Priority Date/Time Associated Diagnosis Comments BD DXA SCREENING Routine 07/06/2024 8:57 AM EDT Postmenopausal estrogen deficiency BI MAMMOGRAM SCREENING (BILATERAL) Routine 06/30/2024 11:38 AM EDT Breast screening LIPID PANEL Routine 07/25/2023 8:36 AM EDT Lipid screening HM COLONOSCOPY FOR RESULT ENTRY ONLY Routine 12/11/2021 HEPATITIS C ANTIBODY, QUALITATIVE Routine 06/14/2020 9:20 AM EDT Need for hepatitis C screening test from Last 3 Months or Most Recently Relevant to Health Maintenance Results * Mammogram Screening (Bilateral) (06/30/2024 11:38 AM EDT) Anatomical Region Laterality Modality Breast Left, Breast Right, Breast Bilateral Bila teral Breast Screening Fernando Morel MD IMG MG EXAMS Final Result * (ABNORMAL) Lipid panel (07/25/2023 8:36 AM EDT) HDL 67 mg/dL [facility] Comment: Interpretation <40 mg/dL: Low HDL cholesterol (major risk factor for CHD) Greater than or equal to 60 mg/dL: High HDL cholesterol ( negative risk factor for CHD) HDL - cholesterol is affected by a number of factors, e.g. smoking, excerise, hormones, sex and age. CHOLESTEROL 153 0 - 240 mg/dL [facility] TRIGLYCERIDES 63 30 - 160 mg/dL [facility] LDL 73 50 - 129 mg/dL [facility] Comment: LDL levels in terms of risk for coronary heart disease: <100 mg/dL: Optimal 100-129 mg/dL: Near or above optimal 130-159 mg/dL: Borderline high 160-189 mg/dL: High >190 mg/dL: Very High CARDIAC RISK RATIO 2.3(L) 3.3 - 4.4 C [facility] Blood 07/25/2023 8:36 AM EDT 07/25/2023 8:39 AM EDT Fernando Morel MD LAB BLOOD ORDERABLES Final Re sult [address] [address] * COLONOSCOPY FOR RESULT ENTRY ONLY (12/11/2021) Historical Provider HEALTH MAINTENANCE Edited Result - Final * DXA Screening (06/28/2021) Anatomical Region Laterality Modality Bone Density Bone Density Fernando MURRY BD BONE DENSITY DEXA Edit ed Result - Final * Hepatitis C antibody, qualitative (06/14/2020 9:20 AM EDT) HCV NON-REACTIV E NON-REACTI VE [facility] Blood 06/14/2020 9:20 AM EDT 06/14/2020 11:32 AM EDT us Fernando Morel MD LAB BLOOD ORDERABLES Final Re sult [facility] [address] [place] [address] from Last 3 Months or Most Recently Relevant to Health Maintenance Insurance MEDICARE REPLACEMENT MEDICARE REPLACEMENT MEDICARE REPLACEMENT MEDICARE REPLACEMENT MEDICARE [place] [address] [place] [address] MEDICARE REPLACEMENT MEDICARE REPLACEMENT [facility] MEDICARE [place] [address] [place] [address] MEDICARE REPLACEMENT Member Subscriber Plan / Payer (Ef fective 2021-Present) Name:Scarlett Perales Relation to Subscriber:Self Name:Scarlett Perales Payer ID:[id number] (NAIC) Type:Medicare Address: [place] [id number] [place] [id number] Care Teams Horticultural Specialty Grower Field Relationship Specialty Start Date End Date Khoa Villar DO [address] [place] [address] [place] [address] [email or web address] PCP - General Family Medicine 09/22/24 Additional Source Comments The information contained in this document represents components of the legal health record. It is not the complete legal health record.[facility]
== END 2025-07-13 07:35 | disposition home or self-care (01) ==
LOC: HO.MAMMO 07:34
PROVIDERS: PCP Family Medicine; Visit Provider Family Medicine
DX: Z12.31 Encounter for screening mammogram for malignant neoplasm of breast (principal)
CPT/HCPCS: 77063; 77067